=== PATIENT | male | born 1970 | race Caucasian/White ===

== ENCOUNTER 2017-04-01 17:45 | Emergency (ER) | payer MEDICAID | END 2017-04-01 21:30 | disposition home or self-care (01) | LOC: D.ER 17:45 | DX: M25.512 Pain in left shoulder (principal) ==

== ENCOUNTER → 2017-05-26 09:43 | Outpatient (CLI) | payer MEDICAID | END | disposition home or self-care (01) | LOC: D.MRI 09:43 | DX: M25.512 Pain in left shoulder (principal) ==

== ENCOUNTER 2017-09-29 06:59 | Day surgery (SDC) | payer MEDICAID ==
[~2017-09-29] VITALS: Ht 175.3 cm; Wt 100.7 kg
[~2017-09-29 06:59] MED LIST: CYMBALTA60 MG PO; FARXIGA10 MG PO; GLUCOTROL ER2.5 MG PO; JANUVIA100 MG PO; TRAZODONE HCL50 MG PO; VICTOZA0.6 MG/0.1 SQ
[2017-09-29 07:37] VITALS: BP 124/76; Ht 175.3 cm; Wt 100.7 kg
[2017-09-29 07:56] LABS: HEMOGLOBIN 14.6 g/dL (13.5-17.5); MCH 29.9 pg (26.0-34.0); MCHC 34.8 g/dL (31.0-37.0); MCV 85.9 fL (80.0-100.0); MEAN PLATELET VOLUME 9.9 fL (7.4-10.4); RBC 4.89 10x6/uL (4.20-6.10); RDW 12.6 % (11.5-14.5); WBC 7.1 10x3/uL (4.8-10.8)
[2017-09-29 07:57] LABS: CALC OSMOLALITY 282 mosm/kg (275-300); CALCIUM 8.6 mg/dL (8.5-10.1); CARBON DIOXIDE 25.4 mmol/L (21.0-32.0); CHLORIDE - SERUM 106 mmol/L (98-107); POTASSIUM - SERUM 3.8 mmol/L (3.5-5.1); SODIUM 140 mmol/L (136-145); UREA NITROGEN 17 mg/dL (7-18); eGFR NON AFRICAN AMERICAN 86 mL/min (90-120)
[2017-09-29 08:02] LABS: GLUCOSE 143 mg/dL (74-106)
[2017-09-29] MEDS ORDERED: BACTRIM DS TABL1 TAB PO (10:56)
[2017-09-29] MEDS ORDERED: HYDROCODON-ACE1 EAC7 PO (10:56)
--- NOTE | 2017-09-29 12:55 | OP ---
PATIENT NAME: NUNU REYNOLDS MEDICAL RECORD: [id number] :74 LOCATION:[facility] ADMISSION DATE: SURGEON: MERYL VILLEGAS MD DATE OF OPERATION: 09/29/2017 SURGEON: Meryl Villegas MD PREOPERATIVE DIAGNOSIS: Pilonidal cyst. POSTOPERATIVE DIAGNOSIS: Pilonidal cyst. PROCEDURE PERFORMED: Pilonidal cystectomy. ANESTHESIA: General. COMPLICATIONS: None. SPECIMENS: Pilonidal cyst 8 x 6 x 5 cm. ANESTHESIA: General. COMPLICATIONS: None. Case was contaminated. OPERATIVE COURSE: After consent was obtained, the patient was taken to the operating room. General anesthesia was given via endotracheal intubation. Thereafter he was placed in the prone position on the operating table. The posterior buttocks was prepped and draped in typical sterile fashion. There was an open area draining just to the left of the midline. Lacrimal probes were placed. Methylene blue was injected with an angiocatheter until dye was noted to be coming out in the midline sinus opening. Local anesthetic was administered. An elliptical incision was made using a 15-blade scalpel. Dissection continued with electrocautery. Soft tissue dissection was continued around the surface of the blue dye to the level of the sacral fascia. The specimen again was 8 cm in length x 6 cm in width x 5 cm in depth. Specimen was passed off the field. Irrigation and suction was performed. Hemostasis was obtained with electrocautery. Subcutaneous flaps were created using electrocautery. The layer was closed in multiple layers. The deep layer was closed with 2-0 Stratafix suture. The deep subcutaneous tissue was closed with 2-0 Stratafix suture. The superficial fascia was closed with 3-0 Stratafix suture, the skin was closed with 3-0 nylon in interrupted vertical mattress suture. At the end of the case, all needle and instrument counts were correct. No complications occurred. The patient was extubated and transferred to the PACU in stable condition. TRANSINT:[id number] Voice Confirmation ID: [id number] DOCUMENT ID: [id number] OPERATIVE REPORT [id number] NUNU REYNOLDS MERYL VILLEGAS MD at 1255 CC: [id number] DICTATION DATE: 09/29/17 1054 OXYACETYLENE BURNER: 09/29/[address] [facility] [address] [facility] [place] [address]
== END 2017-09-29 13:35 | disposition home or self-care (01) ==
LOC: D.OPS 06:59 → D.PAN 09:30 → D.OPS 13:35
PROVIDERS: Anesthesiology
DX: L05.91 Pilonidal cyst without abscess (principal)

== ENCOUNTER 2019-04-11 01:31 | Emergency (ER) | payer MEDICAID ==
[~2019-04-11] VITALS: Ht 175.3 cm; Wt 88.6 kg
[~2019-04-11 01:31] MED LIST changes: +BACTRIM DS TABL1 TAB PO; +HYDROCODON-ACE1 EAC7 PO
[2019-04-11 01:36] VITALS: Ht 175.3 cm; Wt 88.6 kg
[2019-04-11] MEDS ORDERED: FARXIGA10 MG (01:39)
[2019-04-11 02:05] LABS: BASOPHILS 0.3 % (0-2); EOSINOPHILS 0.6 % (0-7); HEMATOCRIT 37.6 % (42.0-54.0); HEMOGLOBIN 13.3 g/dL (13.5-17.5); IMMATURE GRANULOCYTES 0.1 % (0-5); LYMPHOCYTES 16.4 % (15-50); MCH 29.6 pg (26.0-34.0); MCHC 35.4 g/dL (31.0-37.0); MCV 83.7 fL (80.0-100.0); MEAN PLATELET VOLUME 10.1 fL (7.4-10.4); NEUTROPHILS 76.6 % (40-80); PLATELET COUNT 227 10x3/uL (130-400); RBC 4.49 10x6/uL (4.20-6.10); RDW 12.8 % (11.5-14.5); WBC 9.4 10x3/uL (4.8-10.8)
[2019-04-11 02:09] LABS: APTT 25.1 SECONDS (22.8-39.4); PROTIME 12.7 SECONDS (11.6-15.0)
[2019-04-11 02:16] LABS: ALBUMIN 3.7 g/dL (3.4-5.0); ALKALINE PHOSPHATASE 90 U/L (46-116); ALT (SGPT) 29 U/L (10-68); BILIRUBIN - TOTAL 0.66 mg/dL (0.2-1.3); CALC OSMOLALITY 282 mosm/kg (275-300); CALCIUM 8.3 mg/dL (8.5-10.1); CARBON DIOXIDE 26.8 mmol/L (21.0-32.0); CHLORIDE - SERUM 102 mmol/L (98-107); CREATININE - SERUM 1.1 mg/dL (0.6-1.3); GLUCOSE 181 mg/dL (74-106); POTASSIUM - SERUM 3.7 mmol/L (3.5-5.1); PROTEIN - SERUM 6.5 g/dL (6.4-8.2); SODIUM 138 mmol/L (136-145); UREA NITROGEN 18 mg/dL (7-18); eGFR NON AFRICAN AMERICAN 76 mL/min (90-120)
[2019-04-11 08:18] VITALS: BP 143/82
== END 2019-04-11 08:20 | disposition other institution (70) ==
LOC: D.ER 01:31
PROVIDERS: Emergency Medicine
DX: K92.2 Gastrointestinal hemorrhage, unspecified (principal); S20.211A Contusion of right front wall of thorax, initial encounter; W17.89XA Other fall from one level to another, initial encounter; Y93.89 Activity, other specified; Y92.89 Other specified places as the place of occurrence of the external cause